=== PATIENT | male | born 2005 | race Caucasian/White ===

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

== ENCOUNTER 2023-05-31 10:04 | Outpatient (CLI) | payer OTHER, SELFPAY ==
--- NOTE | ~2023-05-31 | XR_ITS ---
Right Shoulder Technique: AP and axillary views were obtained. Clinical History: Pain Findings: No fracture identified. There is borderline increased distance of the cortical clavicular d istance. No degenerative changes. Soft tissues are unremarkable. Impression: Borderline increased distance of the coracoclavicular distance. Correlate for AC joint separation inj ury. Consider bilateral weightbearing shoulder radiographs for further evaluation if AC joint injury is of clinical concern. Reviewed, dictated and finalized at location M. Impression: Borderline increased distance of the coracoclavicular distance. Correlate for A C joint separation injury. Consider bilateral weightbearing shoulder radiograph s for further evaluation if AC joint injury is of clinical concern.
== END 2023-05-31 10:05 ==
PROVIDERS: Visit Provider Nurse Practitioner Family
DX: S49.91XA Unspecified injury of right shoulder and upper arm, initial encounter (principal)
CPT/HCPCS: 73030